=== PATIENT | male | born 1965 | race Caucasian/White ===

== ENCOUNTER 2018-02-02 08:36 | Day surgery (SDC) | payer OTHER ==
[2018-02-02] MEDS ORDERED: PROPOFOL 20 ML (10:24)
== END 2018-02-02 13:41 | disposition home or self-care (01) ==
LOC: GIL 08:36
DX: Z12.11 Encounter for screening for malignant neoplasm of colon (principal); D12.3 Benign neoplasm of transverse colon; K64.4 Residual hemorrhoidal skin tags
CPT/HCPCS: 45380; 88305

== ENCOUNTER 2019-05-08 14:53 | Emergency (ER) | payer OTHER ==
[2019-05-08] MEDS: HYDROCODONE/APAP (5/325) TAB PO (15:22)
== END 2019-05-08 16:50 | disposition home or self-care (01) ==
LOC: FTE 14:53
DX: S42.294A Other nondisplaced fracture of upper end of right humerus, initial encounter for closed fracture (principal); W01.0XXA Fall on same level from slipping, tripping and stumbling without subsequent striking against object, initial encounter; Y92.002 Bathroom of unspecified non-institutional (private) residence as the place of occurrence of the external cause
CPT/HCPCS: 73030; 73030-RT; 73060-RT; 99283-25